=== PATIENT | female | born 1995 | race African-American/Black ===

== ENCOUNTER 2020-07-10 20:24 | Emergency (ER) | payer SELFPAY ==
[~2020-07-10] VITALS: Ht 170.2 cm; Wt 49.0 kg
[2020-07-10 21:08] VITALS: BP 123/81
== END 2020-07-10 23:30 | disposition left against medical advice (07) ==
LOC: ER 20:24
DX: Z53.21 Procedure and treatment not carried out due to patient leaving prior to being seen by health care provider (principal)
CPT/HCPCS: 81003